=== PATIENT | female | born 1950 | race Caucasian/White ===

== ENCOUNTER 2016-08-02 13:20 | Outpatient (RCR) | payer BC ==
[~2016-08-02 13:20] MED LIST: ALLEGRA30 MG PO; DITROPAN 5MG TAB5 MG PO; IBREN600 MG PO; LEVOXYL0.075 MG PO; LEVOXYL0.1 MG PO; METOZOLV ODT5 MG PO; PROGESTERONE; PROGESTERONE PO; TAGAMET IV; TAGAMET400 MG PO; TRIEST PO
== END 2016-08-29 09:07 | disposition still patient (30) ==
LOC: MKS.ESL.PT 13:20
DX: M54.5 Low back pain (principal); M60.852 Other myositis, left thigh

== ENCOUNTER → 2016-12-28 | Outpatient (CLI) | payer BC | LOC: MC.RAD 07:40 | DX: Z12.31 Encounter for screening mammogram for malignant neoplasm of breast (principal) ==

== ENCOUNTER → 2018-01-01 | Outpatient (CLI) | payer BC | LOC: MC.RAD 07:37 | DX: Z12.31 Encounter for screening mammogram for malignant neoplasm of breast (principal) ==

== ENCOUNTER → 2018-06-06 | Outpatient (CLI) | payer BC | LOC: COL.RAD 11:15 | DX: N95.0 Postmenopausal bleeding (principal); R93.89 Abnormal findings on diagnostic imaging of other specified body structures; Z90.721 Acquired absence of ovaries, unilateral ==

== ENCOUNTER → 2019-01-02 | Outpatient (CLI) | payer BC | LOC: MC.RAD 16:38 | DX: Z12.31 Encounter for screening mammogram for malignant neoplasm of breast (principal); N64.59 Other signs and symptoms in breast ==

== ENCOUNTER → 2019-01-09 | Outpatient (CLI) | payer BC | LOC: MC.RAD 08:13 | DX: R92.2 Inconclusive mammogram (principal) ==

== ENCOUNTER → 2019-07-24 | Outpatient (CLI) | payer BC | LOC: MC.RAD 09:58 | DX: R92.2 Inconclusive mammogram (principal) | CPT/HCPCS: G0279 ==

== ENCOUNTER → 2019-10-02 | Outpatient (CLI) | payer BC | LOC: COL.RAD 08:43 | DX: M16.11 Unilateral primary osteoarthritis, right hip (principal) | CPT/HCPCS: J3301; Q9967 ==

== ENCOUNTER → 2020-01-20 | Outpatient (CLI) | payer BC | LOC: MC.RAD 16:53 | DX: Z12.31 Encounter for screening mammogram for malignant neoplasm of breast (principal) ==

== ENCOUNTER → 2021-01-21 | Outpatient (CLI) | payer BC | LOC: MC.RAD 12:57 | DX: Z12.31 Encounter for screening mammogram for malignant neoplasm of breast (principal); N63.20 Unspecified lump in the left breast, unspecified quadrant ==

== ENCOUNTER → 2021-01-27 | Outpatient (CLI) | payer BC | LOC: MC.RAD 06:59 | DX: N60.02 Solitary cyst of left breast (principal); N63.20 Unspecified lump in the left breast, unspecified quadrant ==

== ENCOUNTER → 2021-07-28 | Outpatient (CLI) | payer BC | LOC: MC.RAD 14:00 | DX: N63.20 Unspecified lump in the left breast, unspecified quadrant (principal) ==

== ENCOUNTER → 2022-02-09 | Outpatient (CLI) | payer BC | LOC: MC.RAD 16:18 | DX: Z12.31 Encounter for screening mammogram for malignant neoplasm of breast (principal); N63.20 Unspecified lump in the left breast, unspecified quadrant ==

== ENCOUNTER 2022-06-16 07:55 | Day surgery (SDC) | payer BC ==
[~2022-06-16] VITALS: Ht 172.7 cm; Wt 60.2 kg
[2022-06-16] MEDS ORDERED: SYNTHROID0.1 MG/TAB PO (08:33)
[2022-06-16] MEDS ORDERED: ALLEGRA 180MG180 MG PO (08:33)
[2022-06-16] MEDS ORDERED: REGLAN 10MG10 MG/TAB PO (08:34)
[2022-06-16] MEDS ORDERED: MOBIC15 MG PO (08:34)
[2022-06-16] MEDS ORDERED: LEVSIN0.125 M1 PO (08:35)
[2022-06-16] MEDS ORDERED: TAGAMET400 MG PO (08:36)
[2022-06-16 08:38] VITALS: BP 97/62; PULSE 77; TEMP 97.9
[2022-06-16] MEDS ORDERED: [UNRECOGNIZED DRUG - MIXTURE] (08:38)
[2022-06-16 09:25] VITALS: BP 87/59; PULSE 56; TEMP 97.2
[2022-06-16 09:40] VITALS: BP 100/79; PULSE 65
--- NOTE | 2022-06-16 09:49 | NUR ---
0925 - PT arrives from procedure drowsy but oriented. PT assisted w/ ambulating from cart to chair 2:1. Monitors and warm blankets applied. Vitals and verbal report obtained. PT denies pain/nausea and was provided snack and drink per request. PT oriented to room and call hernadez within reach if needed. Will monitor per intervals; non-slip socks remain on. Visitor remains present. 0940 - VSS. PT has finished snack and drink, is tolerating well. Call hernadez within reach.
[2022-06-16 09:55] VITALS: BP 104/63; PULSE 59
--- NOTE | 2022-06-16 10:07 | NUR ---
0955 - [facility]. PT has finished snack and drink and denies additional. has spoken w/ PT; visitor left. Call hernadez within reach. PT expressed desire to be discharged. 1005 - PT son was brought in from waiting room per PT request.
[2022-06-16 10:10] VITALS: BP 101/72; PULSE 63
--- NOTE | 2022-06-16 10:19 | NUR ---
1010 - VSS. IV and monitors then discontinued. Catheter tip intact and pressure bandage applied. NO redness or swelling noted. DC instructions and educational material reviewed, PT verbalized understanding and signed. PT then refused RN assistance changing into personal clothes. Call hernadez within reach; legs lowered and blankets removed, non-slip socks are on.
--- NOTE | 2022-06-16 10:33 | NUR ---
1030 - PT dismissed from endo via wheelchair to the PT entrence by Padmini MONCADA. PT has DC packet and personal belongings and was transferred into the care of her son, who is driving private car.
== END 2022-06-16 10:34 | disposition home or self-care (01) ==
LOC: SDCO 07:55
DX: Z12.11 Encounter for screening for malignant neoplasm of colon (principal); K57.30 Diverticulosis of large intestine without perforation or abscess without bleeding; K64.0 First degree hemorrhoids
CPT/HCPCS: J2704; J7120

== ENCOUNTER → 2024-05-20 | Outpatient (CLI) | payer BC ==
[~2024-05-20] MED LIST changes: +ALLEGRA 180MG180 MG PO; +LEVSIN0.125 M1 PO; +MOBIC15 MG PO; +REGLAN 10MG10 MG/TAB PO; +SYNTHROID0.1 MG/TAB PO; +[UNRECOGNIZED DRUG - MIXTURE]
== END ==
LOC: MC.RAD 07:56
DX: Z12.31 Encounter for screening mammogram for malignant neoplasm of breast (principal)

== ENCOUNTER 2024-05-27 02:40 | Observation (INO) | payer BC ==
[2024-05-27] VITALS (15 sets, daily range): BP systolic 86–118; BP diastolic 45–77; PULSE 64–129; TEMP 97.8–98.8
[~2024-05-27] VITALS: Ht 172.7 cm; Wt 61.4 kg
[2024-05-27 03:10] LABS: BASO # 0.1 K/mm3 (0.0-0.2); BASO % 0.5 % (0.0-2.0); EOS # 0.4 K/mm3 (0.0-0.7); EOS % 3.8 % (0.0-4.0); GRAN # 7.1 K/mm3 (1.4-6.5); GRAN % 71.4 % (42.2-75.2); HEMATOCRIT 38.3 % (37.0-47.0); HEMOGLOBIN 12.6 g/dl (12.5-16.0); LYMPH # 1.9 K/mm3 (1.2-3.4); LYMPH % 19.3 % (20.0-51.0); MEAN CELL VOLUME 101 fl (80.0-100.0); MEAN CORPUSCULAR HEMOGLOBIN 33 pg (27-31); MEAN CORPUSCULAR HGB CONC 33 g/dl (33.0-37.0); MEAN PLATELET VOLUME 8.8 fl (7.4-10.4); MONO # 0.5 K/mm3 (0.1-0.6); MONO % 4.5 % (1.7-9.3); PLATELET COUNT 318 K/mm3 (130-400); RED BLOOD COUNT 3.81 M/mm3 (4.10-5.30); REDCELL DISTRIBUTION WIDTH-CV 13.3 % (11.5-14.5)
[2024-05-27] MEDS ORDERED: Tranexamic Acid 1,000 MG in NS 100 ML IV ONE (03:15)
[2024-05-27 03:33] LABS: PROTHROMBIN TIME 11.3 SECONDS (9.7-12.8)
[2024-05-27 03:35] LABS: ALBUMIN 3.9 g/dL (3.4-4.8); BILIRUBIN,TOTAL 0.5 mg/dL (0.2-1.2); CALCIUM 10.6 mg/dL (8.4-10.2); CREATININE, serum 0.86 mg/dL (0.57-1.11); MAGNESIUM 2.2 mg/dL (1.6-2.6); POTASSIUM 3.9 mEq/L (3.5-4.5); TOTAL PROTEIN 7.6 g/dl (6.2-8.1)
[2024-05-27 03:41] LABS: TROPONIN-I 0.014 ng/mL (0.00-0.033)
[2024-05-27] MEDS ORDERED: NS 1,000 ML IV ONE (03:45)
[2024-05-27] MEDS ORDERED: TYLENOL 500MG500 MG PO (03:58)
[2024-05-27] MEDS ORDERED: MOTRIN 600600 MG/TAB PO (03:58)
[2024-05-27] MEDS ORDERED: OMEGA-3 1000 MG1 CAP PO (03:59)
[2024-05-27] MEDS ORDERED: fentaNYL 50 MCG/ML 2 ML VIAL ONE (04:48)
--- NOTE | 2024-05-27 04:55 | NUR ---
Report received from Margaux ED RN. Patient to OR directly from ED and will return to room 327 from PACU.
[2024-05-27] MEDS ORDERED: Estradiol 0.01% Vaginal Cream 42.5 G TUBE VG ONE (05:20)
[2024-05-27] MEDS ORDERED: Phenylephrine 10 MG/ML VIAL ONE ×2 (05:23)
[2024-05-27] MEDS ORDERED: LR 1,000 ML IV SCH (06:15)
[2024-05-27] MEDS ORDERED: Ondansetron 4 MG/2 ML VIAL IV PRN (06:15)
[2024-05-27] MEDS ORDERED: Acetaminophen 500 MG TAB PO PRN (06:15)
[2024-05-27] MEDS ORDERED: Naloxone 0.4 MG/ML VIAL IV PRN (06:15)
--- NOTE | 2024-05-27 08:00 | NUR ---
Pt recently arrived to the floor from Pacu. Pt is awake, alert and oriented with minimal pain complaints. I did assist her to the restroom, she did void without difficulty. Pt had light complaint of feeling lightheaded when she sat up. Discussed her blood pressure with her and informed her that I did not want her trying to get up without assistance, pt stated that she understood. Pt has several food allergies and stated that she would have family bring her in food.
[2024-05-27] MEDS ORDERED: MIRALAX PA17 GM/Dose PO (08:31)
--- NOTE | 2024-05-27 08:35 | NUR ---
pt. ambulated to the bathroom with SBA, tolerated without dizziness, nausea, or pain. urine clear, yellow, returns to bed call light in reach.
[2024-05-27] MEDS ORDERED: Docusate Sodium 100 MG CAP PO SCH (09:00)
[2024-05-27] MEDS ORDERED: Polyethylene Glycol 3350 17 GM PDS PO SCH (09:21)
--- NOTE | 2024-05-27 09:27 | NUR ---
Pt doing well at this time. Blood pressure remains stable. Dr Roles in to see pt, packing removed. No active bleeding noted. Discussed home medications with Dr Roles, and then ordered at this time. Pts spouse and son present during Dr Roles rounds, all questions answered
[2024-05-27] MEDS ORDERED: Hyoscyamine 0.125 MG Sublingual TAB PO PRN (09:30)
--- NOTE | 2024-05-27 10:09 | NUR ---
Initial visit; Patient thanked Cabin Equipment Supervisor for looking in on her and appeared pleased that a Cabin Equipment Supervisor is available. Cabin Equipment Supervisor offered God's blessings to Liane Lopez.
[2024-05-27] MEDS ORDERED: ESTRACE0.1 MG/GM VG (11:21)
--- NOTE | 2024-05-27 12:00 | NUR ---
Pts family has brought in food for her as she does have several allergies and sensitivities
[2024-05-27] MEDS ORDERED: Ibuprofen 600 MG TAB PO SCH (12:01)
--- NOTE | 2024-05-27 12:17 | NUR ---
highway maintenance worker met with patient and family at bedside to discuss discharge planning. PAtient stated that she lives in [place] with her , Al (P# [phone]) and that Al is her DPOA. Patient reported that her PCP is Dr. Arriola and that she uses the [facility]. Patient declined using any DMEs at home or ever needing any assistance with ADLs, affording medication, or driving to and from appointments. Patient also denied ever using Home Health services or other medical home serives in the past or present. While meeting with patient and family, patient reported that she had not presented her Medicare card when she came through the ED. highway maintenance worker faxed a copy of insurance card to admissions. Patient denied any further needs at this time. Plan: D/C Home.
[2024-05-27 12:26] LABS: BASO % 0.2 % (0.0-2.0); EOS % 0.5 % (0.0-4.0); GRAN # 6.6 K/mm3 (1.4-6.5); GRAN % 80.9 % (42.2-75.2); LYMPH # 1.1 K/mm3 (1.2-3.4); LYMPH % 13.1 % (20.0-51.0); MEAN CORPUSCULAR HGB CONC 34 g/dl (33.0-37.0); MEAN PLATELET VOLUME 8.9 fl (7.4-10.4); MONO # 0.4 K/mm3 (0.1-0.6); MONO % 4.8 % (1.7-9.3); RED BLOOD COUNT 2.77 M/mm3 (4.10-5.30); REDCELL DISTRIBUTION WIDTH-CV 14.2 % (11.5-14.5)
[2024-05-27 12:27] LABS: HEMATOCRIT 26.7 % (37.0-47.0); HEMOGLOBIN 9.1 g/dl (12.5-16.0); MEAN CELL VOLUME 96 fl (80.0-100.0); MEAN CORPUSCULAR HEMOGLOBIN 33 pg (27-31); PLATELET COUNT 209 K/mm3 (130-400)
--- NOTE | 2024-05-27 12:39 | NUR ---
Pt continues to do well. Pain tolerable with tylenol. No bleeding noted when pt uses the restroom. Pt had labs done around noon, called results to Dr Roles. Brannon given that pt can go home. I did update pt on this. Spouse is in the room. Informed her there is no thomas on leaving but that we would get started on paperwork.
--- NOTE | 2024-05-27 13:21 | NUR ---
Reviewed discharge instructions with pt and her spouse. She talked with her physician from this morning. She has a follow up appointment with them that she is keeping. INT's removed. Informed pt to notify nursing when she is ready to go.
[2024-05-27] MEDS ORDERED: Patient's Own Medication Item PO PRN (21:00)
[2024-05-27] MEDS ORDERED: Patient's Own Medication Item PO SCH (21:00)
[2024-05-28] MEDS ORDERED: Omega-3 Fatty Acid Esters (OTC) 1,000 MG CAP PO SCH (17:00)
== END 2024-05-27 13:27 | disposition home or self-care (01) ==
LOC: COL.ER 02:40 → SURG 05:20
PROVIDERS: Emergency Medicine; ADMIT Obstetrics & Gynecology
DX: N99.820 Postprocedural hemorrhage of a genitourinary system organ or structure following a genitourinary system procedure (principal); N93.9 Abnormal uterine and vaginal bleeding, unspecified
CPT/HCPCS: A9284; G0378; J2371; J2704; J3010; J7030; J7120; P9016